=== PATIENT | female | born 1995 | race Hispanic/Latino ===

== ENCOUNTER 2018-04-25 14:57 | Emergency (ER) | payer OTHER ==
--- NOTE | 2018-04-25 16:27 | RAD REPORT ---
EXAM DESCRIPTION: RAD - Foot Left 3 View - 04/25/2018 4:09 pm CLINICAL HISTORY: PAIN Trauma, fall COMPARISON: No comparisons FINDINGS: Angulated fracture involving the fifth metatarsal neck. Moderate adjacent soft tissue swel ling. No subluxation.
[2018-04-25 16:41] LABS: Urine Blood NEGATIVE (NEG); Urine Glucose NEGATIVE (NEG); Urine Protein NEGATIVE (NEG); Urine pH 6.5 (5.0-7.0)
--- NOTE | 2018-04-25 16:45 | EDPHYS ---
Physician Documentation [facility] Name: Dominick Parson Age: 22 yrs Sex: Female : 1995 Arrival Date: 04/25/2018 Time: 15:01 Bed 19 Private MD: Out, [facility] ED Physician Bolivar López HPI: 04/25 16:42 This 22 yrs old Female presents to ER via Ambulatory with complaints of Foot gs Injury. 16:42 The patient presents with decreased range of motion, a deformity, an injury. The gs complaints affect the left foot. Context: resulted from the patient falling, a mis-step by the patient. Onset: The symptoms/episode began/occurred acutely, 2 day(s) ago. Modifying factors: the symptoms are aggravated by weight bearing. Associated signs and symptoms: Pertinent negatives: numbness. Severity of symptoms: At their worst the symptoms were moderate, in the emergency department the symptoms are unchanged. The patient has not experienced similar symptoms in the past. 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 - Social history:: Smoking status: Patient/guardian denies using tobacco, Patient/guardian denies using alcohol. - Ebola Screening: : Patient negative for fever greater than or equal to 101.5 degrees Fahrenheit, and additional compatible Ebola Virus Disease symptoms Patient denies exposure to infectious person Patient denies travel to an Ebola-affected area in the 21 days before illness onset. ROS: 16:42 All other systems are negative. gs Exam: 16:42 Head/Face: Normocephalic, atraumatic. Eyes: Pupils equal round and reactive to light, gs extra-ocular motions intact. Lids and lashes normal. Conjunctiva and sclera are non-icteric and not injected. Cornea within normal limits. Periorbital areas with no swelling, redness, or edema. ENT: Nares patent. No nasal discharge, no septal abnormalities noted. Tympanic membranes are normal and external auditory canals are clear. Oropharynx with no redness, swelling, or masses, exudates, or evidence of obstruction, uvula midline. Mucous membranes moist. Neck: Trachea midline, no thyromegaly or masses palpated, and no cervical lymphadenopathy. Supple, full range of motion without nuchal rigidity, or vertebral point tenderness. No Meningismus. Chest/axilla: Normal chest wall appearance and motion. Nontender with no deformity. No lesions are appreciated. Cardiovascular: Regular rate and rhythm with a normal S1 and S2. No gallops, murmurs, or rubs. Normal PMI, no JVD. No pulse deficits. Respiratory: Lungs have equal breath sounds bilaterally, clear to auscultation and percussion. No rales, rhonchi or wheezes noted. No increased work of breathing, no retractions or nasal flaring. Abdomen/GI: Soft, non-tender, with normal bowel sounds. No distension or tympany. No guarding or rebound. No evidence of tenderness throughout. Back: No spinal tenderness. No costovertebral tenderness. Full range of motion. Skin: Warm, dry with normal turgor. Normal color with no rashes, no lesions, and no evidence of cellulitis. Neuro: Awake and alert, GCS 15, oriented to person, place, time, and situation. Cranial nerves II-XII grossly intact. Motor strength 5/5 in all extremities. Sensory grossly intact. Cerebellar exam normal. Normal gait. 16:42 Constitutional: The patient appears alert, awake. 16:42 Musculoskeletal/extremity: Extremities: noted in the lateral side of left foot, left fourth toe and left fifth toe: decreased ROM, deformity, pain, Pulses: are normal with no appreciated deficits, Sensation intact. 16:42 Neuro: Motor: is normal, Sensation: is normal. Vital Signs: 15:19 BP 153 / 95; Pulse 85; Resp 18; Temp 98.4(O); Pulse Ox 100% on R/A; Weight 58.97 kg; hj Height 5 ft. 0 in. (152.40 cm); Pain 10/10; 15:19 Body Mass Index 25.39 (58.97 kg, 152.40 cm) hj MDM: 15:39 Patient medically screened. gs 16:42 Differential diagnosis: fracture, sprain. Data reviewed: vital signs, nurses notes. gs Response to treatment: the patient's symptoms have mildly improved after treatment, and as a result, I will discharge patient. 16:44 Counseling: I had a detailed discussion with the patient and/or guardian regarding: the gs presence of at least one elevated blood pressure reading (>120/80) during this emergency department visit. Special discussion: I have referred the patient to see his PCP for further evaluation of high blood pressure. 04/25 15:45 Order name: Urine Dipstick--Ancillary (enter results); Complete Time: 16:51 bd 04/25 15:45 Order name: Urine --Ancillary (enter results); Complete Time: 16:51 bd 04/25 15:40 Order name: Foot Left 3 View XRAY; Complete Time: 16:31 04/25 16:31 Order name: Post-op Orthopedic Shoe; Complete Time: 16:48 gs 04/25 16:31 Order name: Darshan Wrap; Complete Time: 16:48 04/25 16:56 Order name: Crutches; Complete Time: 17:15 Administered Medications: 17:05 Drug: [place] 5 mg-325 mg 1 tabs Route: PO; aa5 17:10 Follow up: Response: Medication administered at discharge. aa5 17:15 Not Given (Patient Refused): Ibuprofen 600 mg PO once aa5 Disposition: 04/25/18 16:44 Discharged to Home. Impression: Displaced fracture of fifth metatarsal bone, left foot. - Condition is Stable. - Discharge Instructions: Metatarsal Fracture, Undisplaced. - Prescriptions for Tylenol- Codeine #4 300-60 mg Oral Tablet - take 1 tablet by ORAL route every 6 hours As needed; 12 tablet. - Medication Reconciliation Form, Thank You Letter, Antibiotic Education, Prescription Opioid Use form. - Follow up: Oj Whitfield MD; When: 2 - 3 days; Reason: Re-evaluation by your physician. Signatures: Dispatcher [employer] EDMS Diane Anthony RN RN aa5 Damian Ortiz RN RN Bolivar López MD MD Corrections: (The following items were deleted from the chart) 17:17 16:44 04/25/2018 16:44 Discharged to Home. Impression: Displaced fracture of fifth aa5 metatarsal bone, left foot. Condition is Stable. Forms are Medication Reconciliation Form, Thank You Letter, Antibiotic Education, Prescription Opioid Use. Follow up: Oj Whitfield; When: 2 - 3 days; Reason: Re-evaluation by your physician. gs
--- NOTE | 2018-04-25 16:45 | ER ---
Nurse's Notes [facility] Name: Dominick Parson Age: 22 yrs Sex: Female : 1995 Arrival Date: 04/25/2018 Time: 15:01 Bed 19 Private MD: Out, [facility] Diagnosis: Displaced fracture of fifth metatarsal bone, left foot Presentation: 04/25 15:11 Presenting complaint: Patient states: i fell down stairs and hurt my L foot, L ankle hj around 6:30 am today; reports tingling and throbbing, pain is 10/10;. Transition of care: patient was not received from another setting of care. Onset of symptoms was April 25, 2018. Risk Assessment: Do you want to hurt yourself or someone else? Patient reports no desire to harm self or others. Initial Sepsis Screen: Does the patient meet any 2 criteria? No. Patient's initial sepsis screen is negative. Does the patient have a suspected source of infection? No. Patient's initial sepsis screen is negative. Care prior to arrival: None. 15:11 Method Of Arrival: Ambulatory 15:11 Acuity: CLAUDIA 4 Triage Assessment: 15:18 General: Appears in no apparent distress. uncomfortable, Behavior is calm, cooperative, hj appropriate for age. Pain: Complains of pain in lateral side of left foot, left lateral malleolus and dorsum of left foot. Musculoskeletal: Circulation, motion, and sensation intact. Capillary refill is > 3 seconds. 15:20 Injury Description: fall. 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 - Social history:: Smoking status: Patient/guardian denies using tobacco, Patient/guardian denies using alcohol. - Ebola Screening: : Patient negative for fever greater than or equal to 101.5 degrees Fahrenheit, and additional compatible Ebola Virus Disease symptoms Patient denies exposure to infectious person Patient denies travel to an Ebola-affected area in the 21 days before illness onset. Screenin:19 Abuse screen: Denies threats or abuse. Denies injuries from another. Nutritional hj screening: No deficits noted. Tuberculosis screening: No symptoms or risk factors identified. Fall Risk None identified. Assessment: 15:30 General: Appears comfortable, Behavior is calm, cooperative. Pain: Complains of pain in aa5 lateral side of left foot and left lateral malleolus Pain does not radiate. Pain currently is 10 out of 10 on a pain scale. Quality of pain is described as throbbing, Is continuous, Aggravated by increased activity. Neuro: Level of Consciousness is awake, alert, obeys commands, Oriented to person, place, time, situation. Cardiovascular: No deficits noted. Respiratory: Airway is patent Respiratory effort is even, unlabored, Respiratory pattern is regular, symmetrical. GI: No signs and/or symptoms were reported involving the gastrointestinal system. : No signs and/or symptoms were reported regarding the genitourinary system. EENT: No signs and/or symptoms were reported regarding the EENT system. Derm: Skin is pink, warm \T\ dry. Musculoskeletal: Range of motion: intact in all extremities, Swelling present in lateral side of left foot. 16:30 Reassessment: Patient is alert, oriented x 3, equal unlabored respirations, skin aa5 warm/dry/pink. Patient states symptoms have not improved. 16:30 Pain: Pain currently is 10 out of 10 on a pain scale. aa5 16:45 Reassessment: Darshan wrap applied and post-op shoe applied to left foot. . aa5 Vital Signs: 15:19 BP 153 / 95; Pulse 85; Resp 18; Temp 98.4(O); Pulse Ox 100% on R/A; Weight 58.97 kg; hj Height 5 ft. 0 in. (152.40 cm); Pain 10/10; 15:19 Body Mass Index 25.39 (58.97 kg, 152.40 cm) ED Course: 15:01 Patient arrived in ED. sb2 15:01 Out, of Town is Private Physician. sb2 15:18 Triage completed. hj 15:18 Arm band placed on left wrist. hj 15:20 Patient has correct armband on for positive identification. Bed in low position. Call light in reach. Side rails up X 1. 15:23 Bolivar López MD is Attending Physician. gs 15:24 Anthony, Diane, RN is Primary Nurse. aa5 15:52 No provider procedures requiring assistance completed. aa5 16:07 X-ray completed. Portable x-ray completed in exam room. Patient tolerated procedure bb2 well. 16:09 Foot Left 3 View XRAY In Process Unspecified. EDMS 16:44 Oj Whitfield MD is Referral Physician. 17:10 Patient did not have IV access during this emergency room visit. aa5 Administered Medications: 17:05 Drug: [place] 5 mg-325 mg 1 tabs Route: PO; aa5 17:10 Follow up: Response: Medication administered at discharge. aa5 17:15 Not Given (Patient Refused): Ibuprofen 600 mg PO once aa5 Outcome: 16:44 Discharge ordered by MD. 17:10 Discharged to home ambulatory, with crutches, with family. aa5 17:10 Condition: stable 17:10 Discharge instructions given to patient, Instructed on discharge instructions, follow up and referral plans. no drinking with medication, no driving heavy equipment, medication usage, Demonstrated understanding of instructions, follow-up care, medications, Prescriptions given X 1. 17:17 Patient left the ED. aa5 Signatures: Dispatcher [employer] EDVA Diane Anthony, RN RN aa5 Damian Ortiz RN RN hj Starr, Gregory, MD MD Jayne Catherine bb2 Yakelin Kathleen sb2 Corrections: (The following items were deleted from the chart) 15:21 15:19 Pulse 85bpm; Resp 18bpm; Pulse Ox 100% RA; Temp 98.4F Oral; 58.97 kg; Height 5 hj ft. 0 in.; BMI: 25.3; Pain 10/10; hj
[2018-04-25] MEDS ORDERED: IBUPROFEN 200 MG TAB PO ONE (17:07)
[2018-04-25] MEDS ORDERED: IBUPROFEN 400 MG TAB ONE (17:07)
[2018-04-25] MEDS ORDERED: HYDROCODONE/APAP 5/325 MG TAB ONE (17:07)
== END 2018-04-25 17:17 | disposition home or self-care (01) ==
LOC: ER 14:57
DX: S92.352A Displaced fracture of fifth metatarsal bone, left foot, initial encounter for closed fracture (principal); W10.9XXA Fall (on) (from) unspecified stairs and steps, initial encounter; Y93.89 Activity, other specified; Y92.9 Unspecified place or not applicable
CPT/HCPCS: 81003; 81025; 99283